=== PATIENT | female | born 1950 | race Caucasian/White ===

== ENCOUNTER 2021-12-13 11:03 | Emergency (ER) | payer MEDICARE ==
[~2021-12-13] VITALS: Ht 175.3 cm; Wt 65.8 kg
[~2021-12-13 11:03] MED LIST: IBUP800 PO; OXYACE5T PO; RXOXYACE PO
[2021-12-13] MEDS ORDERED: PAXLOVID 150-11 EACH PO (12:07)
[2021-12-13] MEDS ORDERED: PROZAC20 M9 PO (12:51)
[2021-12-13] MEDS ORDERED: GABA100 PO (12:52)
[2021-12-13] MEDS ORDERED: LORA.5 (12:52)
== END 2021-12-13 13:15 | disposition home or self-care (01) ==
LOC: ER 11:03
DX: U07.1 COVID-19 (principal); Z88.2 Allergy status to sulfonamides; Z88.5 Allergy status to narcotic agent; Z91.040 Latex allergy status
CPT/HCPCS: 99284-25; M0222